=== PATIENT | male | born 1965 | race Caucasian/White ===

== ENCOUNTER 2018-10-27 08:07 | Day surgery (SDC) | payer BC ==
[2018-10-24 15:48] VITALS: BMI 23.7
[~2018-10-27 08:07] MED LIST: LACTATED RINGERS 1,000 ML IV SCH; LIDOCAINE 1% 20 ML VIAL (10MG/ML) FOR IV START INTRADERMA PRN; PROPOFOL 10 MG/ML 20 ML VIAL IV ONE
[2018-10-27 08:46] VITALS: RESP 16; TEMP 98.1
--- NOTE | 2018-10-27 09:31 | P.PCN ---
Date of Procedure: 10/27/18 Procedure(s) Performed: BRIEF HISTORY: Patient is a 53-year-old pleasant white male, scheduled for an elective colonoscopy as a part of screening for colorectal neoplasia PROCEDURE PERFORMED: Colonoscopy. PREOPERATIVE DIAGNOSIS: Screening for colon cancer. IV sedation per Anesthesia. PROCEDURE: After informed consent was obtained, the patient, was brought into the endoscopy unit. IV sedation was administered by Anesthesia under continuous monitoring. Digital rectal examination was normal. Initially the Olympus CF-160 flexible video colonoscope was then inserted in the rectum, gradually advanced into the cecum without any difficulty. Careful examination was performed as the scope was gradually being withdrawn. Ileocecal valve and the appendiceal orifice were visualized and appeared normal. Prep was excellent. Mucosa of the cecum, ascending colon, transverse colon, descending colon, sigmoid colon, and rectum appeared normal. Retroflexion was performed in the rectum and no lesions were seen. The patient tolerated the procedure well. IMPRESSION: Normal-appearing colon from rectum to cecum with no evidence of colorectal neoplasia . RECOMMENDATIONS: Findings of this examination were discussed with the patient as well as his family. He was advised to have a repeat screening colonoscopy in 10 years.
[2018-10-27 10:02] VITALS: BP 124/77; PULSE 71
== END 2018-10-27 10:09 | disposition home or self-care (01) ==
LOC: ORWHC2ENDO 08:07
PROVIDERS: ATTEND Internal Medicine Gastroenterology
DX: Z12.11 Encounter for screening for malignant neoplasm of colon (principal)
CPT/HCPCS: G0121; J2704; 45378

== ENCOUNTER 2021-10-14 11:27 | Emergency (ER) | payer BC, OTHER ==
[2021-10-14 11:51] VITALS: BP 135/82; PULSE 120; RESP 20; TEMP 98.1
[2021-10-14] MEDS ORDERED: DIPH,PERTUS(ACELL)TETVAC-LF 0.5 ML VIAL IM ONE (12:33)
--- NOTE | 2021-10-14 12:36 | ED ---
Wound/Laceration HPI - General Chief Complaint: Wound/Laceration Stated Complaint: IHS-metal in wrist Time Seen by Provider: 10/14/21 12:27 Source: patient, RN notes reviewed Mode of arrival: ambulatory Limitations: no limitations - History of Present Illness Initial Comments: Patient is a 56-year-old male presents the emergency room after a work accident in which a piece of aluminum embedded into his left wrist. He does have some swelling and tenderness in the palmar aspect of his left hand. He denies any numbness or tingling. He is unsure of his tetanus is up-to-date. He has no other significant past medical history except for pneumonia. He denies any other complaints or concerns at this time. - Related Data Home Medications Medication Instructions Recorded Confirmed No Known Home Medications 10/24/18 10/27/18 Allergies Allergy/AdvReac Type Severity Reaction Status Date / Time No Known Allergies Allergy Verified 10/14/21 11:50 Review of Systems ROS Statement: Those systems with pertinent positive or pertinent negative responses have been documented in the HPI. ROS Other: All systems not noted in ROS Statement are negative. Past Medical History Past Medical History: Pneumonia Additional Past Medical History / Comment(s): pneumonia 1998, History of Any Multi-Drug Resistant Organisms: None Reported Past Surgical History: Appendectomy Additional Past Surgical History / Comment(s): orthodonic jaw surgery, Past Anesthesia/Blood Transfusion Reactions: Motion Sickness Past Psychological History: No Psychological Hx Reported Smoking Status: Never smoker Past Alcohol Use History: None Reported Past Drug Use History: None Reported - Past Family History Father Family Medical History: Cancer Additional Family Medical History / Comment(s): leukemia General Exam Limitations: no limitations General appearance: alert, in no apparent distress Head exam: Present: atraumatic, normocephalic, normal inspection Eye exam: Present: normal appearance, PERRL, EOMI. Absent: scleral icterus, conjunctival injection, periorbital swelling ENT exam: Present: normal exam, mucous membranes moist Neck exam: Present: normal inspection Respiratory exam: Absent: respiratory distress, accessory muscle use Left Forearm Wrist exam: Present: tenderness, swelling, erythema, other (Small aluminum carlitos embedded left wrist upward into her left hand). Absent: deformity, crepitus, dislocation Hand Wrist exam: Present: tenderness, swelling Vascular: Absent: vascular compromise Back exam: Present: normal inspection Neurological exam: Present: alert, oriented X3, CN II-XII intact Psychiatric exam: Present: normal affect, normal mood Skin exam: Present: other (Puncture wound with foreign object left wrist) Course Vital Signs 10/14/21 11:48 Temperature 98.1 F Pulse Rate 120 H Respiratory 20 Rate Blood Pressure 135/82 O2 Sat by Pulse 97 Oximetry Procedures - Forgein Body Removal Soft Tissue Consent Obtained: verbal consent Site: upper extremity Anesthetic Used: lidocaine 1% Foreign Body Suspected: Metal Foreign Body Removed: yes Foreign Body Removal Technique: Forceps Patient Tolerated Procedure: well, no complications - Laceration Laceration #1 Consent Obtained: verbal consent Indication: laceration Site: upper extremity Description: linear, foreign body (removed; puncture site) Anesthesia Technique: local infiltration Pre-repair: foreign body removed Type of Sutures: nylon Size of Sutures: 4-0 Number of Sutures: 1 Technique: simple, interrupted Patient Tolerated Procedure: well, no complications Medical Decision Making - Medical Decision Making 56-year-old male presenting to the emergency room with puncture wound with foreign body to left wrist while at work. Will check check x-ray left wrist/hand to determine exact length and projection of foreign body for removal. Unsure of tetanus status will update tetanus. No indication for other laboratory studies at this time. X-ray without any soft tissue or bone anomalies foreign body 4.1 cm in length noted along the ulnar aspect of the hand. Status post removal tolerated well with intact 4.1 cm metal foreign object removed. Tetanus updated. Suture 1 placed at puncture site for closure. No indication for antibiotics. Advised need for wound care and follow-up with primary care provider. Sutures to be removed in 7 days. Case discussed with Dr. Chambers. - Radiology Data Radiology results: report reviewed, image reviewed X-ray the left hand initial shows a focal foreign body projecting along the ulnar carpal soft tissue with soft tissue swelling. No acute osseous abnormality seen. X-ray left wrist hooklike foreign body measuring 4.1 cm long within the ulnar sided carpal soft tissue. Repeat left hand x-ray shows complete removal of foreign body with soft tissue swelling. Disposition Clinical Impression: Puncture wound of right wrist with foreign body Disposition: HOME SELF-CARE Condition: Stable Additional Instructions: Your tetanus vaccine was updated today and is current for the next 10 years. The suture placed today needs to be removed in 7-10 days please return to primary care provider urgent care or the emergency room for suture removal. Monitor wound for signs or symptoms of infection. If any numbness, tingling, redness, swelling, or drainage from wound or hand please seek immediate medical attention as appropriate. Please return to the Emergency Department if symptoms worsen or any other concerns. Is patient prescribed a controlled substance at d/c from ED?: No Referrals: Ana Rosa Wilkes DO [Primary Care Provider] - 1-2 days Time of Disposition: 13:42
--- NOTE | 2021-10-14 12:49 | XR ---
EXAMINATION TYPE: XR wrist complete LT DATE OF EXAM: 10/14/2021 COMPARISON: NONE HISTORY: 56-year-old male metal foreign body TECHNIQUE: 4 views FINDINGS: There is a hook-like foreign body measuring up to 4.1 cm long within the ulnar-sided carpal soft tiss ues. Associated soft tissue swelling. Some of the foreign body appears to protrude outside in surface . No underlying acute fracture, subluxation, or dislocation seen. Very mild degenerative spurring rad iocarpal and first CMC joints. IMPRESSION: A hook-like foreign body measuring 4.1 cm long within the ulnar-sided carpal soft tissues. Associated soft tissue swelling. No underlying acute osseous abnormality seen.
[2021-10-14] MEDS ORDERED: LIDOCAINE 1% INJ 10MG/ML (20 ML MDV) SQ ONE (12:53)
--- NOTE | 2021-10-14 13:00 | XR ---
EXAMINATION TYPE: XR hand limited LT DATE OF EXAM: 10/14/2021 COMPARISON: NONE HISTORY: 56-year-old male foreign body TECHNIQUE: 2 views FINDINGS: Hook-like metallic foreign body projecting along the ulnar carpal soft tissues with soft ti ssue swelling. No additional radiopaque foreign body seen. No acute fracture, subluxation, or disloca tion. IMPRESSION: Hook like foreign body as described on the wrist report along the ulnar-sided carpal soft tissues. No acute osseous abnormality seen.
--- NOTE | 2021-10-14 13:40 | XR ---
EXAMINATION TYPE: XR hand limited LT DATE OF EXAM: 10/14/2021 COMPARISON: NONE HISTORY: 56-year-old male follow-up foreign body removal TECHNIQUE: 2 views FINDINGS: Residual soft tissue swelling along the ulnar aspect of the carpus. Mild degenerative spurring base o f the thumb. No acute fracture, subluxation or dislocation. IMPRESSION: Complete removal of the ulnar-sided foreign body. Residual soft tissue swelling.
== END 2021-10-14 13:56 | disposition home or self-care (01) ==
LOC: EC 11:27
DX: S61.542A Puncture wound with foreign body of left wrist, initial encounter (principal); Z23 Encounter for immunization; W26.8XXA Contact with other sharp object(s), not elsewhere classified, initial encounter
CPT/HCPCS: 73110; 73120; 90715; 99283; 90471; 12001; J2001; 12031